=== PATIENT | female | born 1960 | race Asian ===

== ENCOUNTER 2016-11-07 10:45 | Outpatient (CLI) | payer OTHER ==
[~2016-11-07 10:45] MED LIST: ALBU90AE13 INH; CELEXA40 MG PO; DIOVAN320 MG PO; GABA300C2 PO; GLIP10TA55 PO; HYDR10TA47 PO; LEVO0.1224 PO; METF500T PO
== END 2016-11-07 19:07 | disposition home or self-care (01) ==
LOC: RAD 10:45
DX: J40 Bronchitis, not specified as acute or chronic (principal)

== ENCOUNTER 2017-02-24 18:11 | Inpatient (IN) | payer OTHER ==
[~2017-02-24] VITALS: Ht 172.7 cm; Wt 155.8 kg
[2017-02-24 19:16] LABS: PLATELET COUNT 262 K/uL (152-353)
[2017-02-24 19:33] LABS: POTASSIUM 4.1 mmol/L (3.6-5.2); SODIUM 134 mmol/L (136-145)
[2017-02-24 20:00] VITALS: BP 162/89; TEMP 100.3
[2017-02-24 23:45] VITALS: BP 149/95; TEMP 98.3; Ht 172.7 cm; Wt 155.8 kg
[2017-02-25] VITALS: BP 147/83; TEMP 99.5
[2017-02-25] MEDS ORDERED: METFORMIN HCL500 MG PO (02:02)
[2017-02-25] MEDS ORDERED: AMLO2.5T PO ×2 (02:03→02:04)
[2017-02-25] MEDS ORDERED: DIOVAN40 MG PO (02:05)
[2017-02-25] MEDS ORDERED: ELIQUIS5 MG OR (02:07)
[2017-02-25] MEDS ORDERED: NEURONTIN 100M100 MG OR (02:08)
[2017-02-25] MEDS ORDERED: HYDROCO/APAP1 T14 PO (02:14)
[2017-02-25 04:00] VITALS: BP 156/93; TEMP 99
[2017-02-25 06:28] LABS: PLATELET COUNT 325 K/uL (152-353)
[2017-02-25 06:43] LABS: POTASSIUM 3.4 mmol/L (3.6-5.2)
[2017-02-25 08:00] VITALS: BP 124/73; TEMP 98.8
[2017-02-25 12:00] VITALS: BP 126/64; TEMP 98.6
[2017-02-25 16:00] VITALS: BP 138/73; TEMP 97.9
[2017-02-25 20:00] VITALS: BP 170/91; TEMP 97.9
[2017-02-26] VITALS: BP 126/89; TEMP 99.4
[2017-02-26 04:00] VITALS: BP 153/85; TEMP 97.8
[2017-02-26 05:41] LABS: PLATELET COUNT 275 K/uL (152-353)
[2017-02-26 06:00] LABS: POTASSIUM 4.2 mmol/L (3.6-5.2)
[2017-02-26 08:00] VITALS: BP 169/91; TEMP 99.2
[2017-02-26 12:00] VITALS: BP 149/76; TEMP 98.9
[2017-02-26 16:00] VITALS: BP 134/94; TEMP 98.5
[2017-02-26 20:00] VITALS: BP 126/57; TEMP 98
[2017-02-27] VITALS: BP 127/70; TEMP 98
[2017-02-27 04:00] VITALS: BP 148/69; TEMP 98.2
[2017-02-27 05:20] LABS: PLATELET COUNT 277 K/uL (152-353)
[2017-02-27 05:38] LABS: POTASSIUM 3.7 mmol/L (3.6-5.2); SODIUM 141 mmol/L (136-145)
[2017-02-27 08:00] VITALS: BP 132/61; TEMP 98.5
[2017-02-27 12:00] VITALS: BP 149/75; TEMP 98.4
[2017-02-27 16:00] VITALS: BP 137/74; TEMP 97.7
[2017-02-27 20:00] VITALS: BP 100/67; TEMP 98.1
[2017-02-28] VITALS: BP 135/72; BP 94/46; TEMP 97.9
[2017-02-28 04:10] VITALS: BP 153/83; TEMP 97.9
[2017-02-28 05:19] LABS: PLATELET COUNT 289 K/uL (152-353)
[2017-02-28 05:50] LABS: POTASSIUM 3.5 mmol/L (3.6-5.2); SODIUM 140 mmol/L (136-145)
[2017-02-28 08:00] VITALS: BP 164/91; TEMP 97.4
[2017-02-28 12:00] VITALS: BP 170/87; TEMP 98.2
[2017-02-28 16:00] VITALS: BP 130/64; TEMP 97.9
[2017-02-28 19:47] LABS: PLATELET COUNT 299 K/uL (152-353)
[2017-02-28 19:53] LABS: POTASSIUM 3.3 mmol/L (3.6-5.2); SODIUM 140 mmol/L (136-145)
[2017-02-28 20:00] VITALS: BP 130/86; TEMP 97.9
[2017-03-01 00:05] VITALS: BP 153/84; TEMP 98
[2017-03-01 04:00] VITALS: BP 151/89; TEMP 97.7
[2017-03-01 08:00] VITALS: BP 152/89; TEMP 98.1
[2017-03-01 12:00] VITALS: BP 170/87; TEMP 98
== END 2017-03-01 15:54 | disposition home or self-care (01) | DRG 603 ==
LOC: MED/SURG 18:11
PROVIDERS: ADMIT Family Medicine
DX: L03.314 Cellulitis of groin (principal); N39.0 Urinary tract infection, site not specified; E66.01 Morbid (severe) obesity due to excess calories; E11.9 Type 2 diabetes mellitus without complications; I10 Essential (primary) hypertension; F32.89 Other specified depressive episodes; I50.9 Heart failure, unspecified; E03.8 Other specified hypothyroidism; B35.6 Tinea cruris
CPT/HCPCS: 36415; 80053; 80061; 80074; 80202; 82550; 82948; 83036; 83735; 84100; 84443; 84484; 85027; 85379; 85610; 87040; 87070; 87077; 87185; 87186; 87205; 87252; 87490; 87529; 87590; 94668; 94760; 96365; 96366; 96367; 96372; 96375; 99220; G0379; J0133; J1170; J1450; J1815; J1940; J3370

== ENCOUNTER 2020-01-17 10:15 | Outpatient (CLI) | payer OTHER ==
[~2020-01-17 10:15] MED LIST changes: +AMLO2.5T PO; +DIOVAN40 MG PO; +ELIQUIS5 MG OR; +HYDROCO/APAP1 T14 PO; +METFORMIN HCL500 MG PO; +NEURONTIN 100M100 MG OR
[2020-01-17 11:12] LABS: PLATELET COUNT 558 K/uL (152-353)
[2020-01-17 11:38] LABS: POTASSIUM 3.9 mmol/L (3.6-5.2)
== END 2020-01-17 19:40 | disposition home or self-care (01) ==
LOC: LABW 10:15
PROVIDERS: Nurse Practitioner Family
DX: E11.9 Type 2 diabetes mellitus without complications (principal); E78.5 Hyperlipidemia, unspecified; I10 Essential (primary) hypertension; E03.9 Hypothyroidism, unspecified; E55.9 Vitamin D deficiency, unspecified; R53.83 Other fatigue
CPT/HCPCS: 36415; 80053; 80061; 82306; 82607; 83036; 84443; 85027

== ENCOUNTER 2020-01-27 11:51 | Outpatient (CLI) | payer OTHER ==
[2020-01-27 12:32] LABS: POTASSIUM 3.3 mmol/L (3.6-5.2)
[2020-01-27 13:42] LABS: PLATELET COUNT 320 K/uL (152-353)
== END 2020-01-27 18:58 | disposition home or self-care (01) ==
LOC: LABW 11:51
PROVIDERS: Family Medicine
DX: U07.1 COVID-19 (principal); I26.99 Other pulmonary embolism without acute cor pulmonale
CPT/HCPCS: 36415; 80053; 85007; 85027

== ENCOUNTER 2020-02-03 11:29 | Outpatient (CLI) | payer OTHER | END 2020-02-03 22:24 | disposition home or self-care (01) | LOC: LAB 11:29 → CT 11:29 | DX: U07.1 COVID-19 (principal) | CPT/HCPCS: 36415; 82565; 84520; Q9963 ==

== ENCOUNTER 2020-02-10 14:39 | Outpatient (CLI) | payer OTHER | END 2020-02-10 19:10 | disposition home or self-care (01) | LOC: RAD 14:39 | DX: U07.1 COVID-19 (principal) ==

== ENCOUNTER 2020-07-03 09:26 | Outpatient (CLI) | payer OTHER | END 2020-07-03 23:23 | disposition home or self-care (01) | LOC: LABW 09:26 | DX: E11.65 Type 2 diabetes mellitus with hyperglycemia (principal); R82.998 Other abnormal findings in urine | CPT/HCPCS: 36415; 81000; 83036; 87077; 87086; 87088; 87186 ==

== ENCOUNTER 2021-06-13 13:23 | Outpatient (CLI) | payer OTHER ==
[2021-06-13 13:36] LABS: PLATELET COUNT 361 K/uL (152-353)
[2021-06-13 14:07] LABS: POTASSIUM 3.8 mmol/L (3.6-5.2)
== END 2021-06-13 20:08 | disposition home or self-care (01) ==
LOC: LABW 13:23
PROVIDERS: ATTEND Internal Medicine Cardiovascular Disease
DX: Z79.899 Other long term (current) drug therapy (principal); R06.09 Other forms of dyspnea
CPT/HCPCS: 36415; 80053; 80061; 83880; 84443; 85027

== ENCOUNTER 2022-06-06 16:12 | Observation (INO) | payer OTHER ==
[~2022-06-06] VITALS: Ht 172.7 cm; Wt 144.7 kg
[2022-06-06 16:49] LABS: PLATELET COUNT 570 K/uL (152-353)
[2022-06-06 17:14] LABS: PARTIAL THROMBOPLASTIN TIME 30.1 SECONDS (24.5-33.6)
[2022-06-06 17:18] VITALS: BP 198/98; TEMP 98.4; Ht 172.7 cm; Wt 144.7 kg
[2022-06-06 17:21] LABS: POTASSIUM 3.4 mmol/L (3.6-5.2)
[2022-06-06] MEDS ORDERED: ELIQUIS5 MG PO (17:22)
[2022-06-06] MEDS ORDERED: ASA LOW DOSE81 MG PO (17:23)
[2022-06-06] MEDS ORDERED: VITAMIN D2000 UNI2 PO (17:24)
[2022-06-06 20:00] VITALS: BP 166/81; TEMP 98.7
[2022-06-07] VITALS (7 sets, daily range): BP systolic 152–201; BP diastolic 70–102; TEMP 98–99.4
[2022-06-07 04:57] LABS: POTASSIUM 3.3 mmol/L (3.6-5.2)
[2022-06-07 05:02] LABS: PLATELET COUNT 524 K/uL (152-353)
== END 2022-06-07 17:53 | disposition short-term general hospital (02) ==
LOC: MED/SURG 16:12
PROVIDERS: ADMIT Internal Medicine; ATTEND Internal Medicine
DX: L02.31 Cutaneous abscess of buttock (principal); B95.62 Methicillin resistant Staphylococcus aureus infection as the cause of diseases classified elsewhere; E11.65 Type 2 diabetes mellitus with hyperglycemia; I10 Essential (primary) hypertension; K21.9 Gastro-esophageal reflux disease without esophagitis; I48.91 Unspecified atrial fibrillation; E78.49 Other hyperlipidemia; Z86.711 Personal history of pulmonary embolism
CPT/HCPCS: 80048; 80053; 84443; 85027; 85610; 85730; 87040; 87070; 87077; 87185; 87186; 87205; 87635; 96361; 96365; 96367; 96372; 96374; 96375; 96376; 99220; G0378; G0379; J0360; J2270; J2543; J3370; J3490; U0003